=== PATIENT | female | born 1960 | race African-American/Black ===

== ENCOUNTER 2017-10-09 15:23 | Emergency (ER) | payer OTHER ==
[~2017-10-09] VITALS: Ht 170.2 cm; Wt 146.8 kg
[2017-10-09] MEDS ORDERED: LOSA50TA37 PO (15:35)
[2017-10-09] MEDS ORDERED: FURO40 PO (15:35)
[2017-10-09] MEDS ORDERED: ATEN100T PO (15:35)
[2017-10-09] MEDS ORDERED: LEVE500T53 PO (15:35)
[2017-10-09] MEDS ORDERED: LAMO100 PO (15:35)
[2017-10-09] MEDS ORDERED: ESCI10TA PO (15:35)
[2017-10-09] MEDS ORDERED: NIFE10 PO (15:35)
[2017-10-09 16:14] LABS: BASOPHILS % (AUTO) 0.3 % (0.0-2.0); EOSINOPHILS % (AUTO) 0 % (1.0-6.0); HEMATOCRIT 35.5 % (36-46); HEMOGLOBIN 11.9 g/dL (12.0-16.0); LYMPHOCYTES # (AUTO) 1.7 K/uL (1.0-4.8); LYMPHOCYTES % (AUTO) 33.6 % (22.0-44.0); MEAN CORPUSCULAR HEMOGLOBIN 30.9 pg (26.0-34.0); MEAN CORPUSCULAR HGB CONC 33.5 G/dL (31.0-37.0); MEAN CORPUSCULAR VOLUME 92 fL (80-100); MONOCYTES # (AUTO) 0.4 K/uL (0.1-1.0); MONOCYTES % (AUTO) 7.4 % (2.0-9.0); NEUTROPHILS % (AUTO) 58.7 % (40.0-70.0); PLATELET COUNT (AUTO) 229 K/uL (150-450); RED BLOOD CELL COUNT(AUTO) 3.84 MIL/uL (4.00-5.20); RED CELL DISTRIBUTION WIDTH 13.7 % (11.5-14.5)
[2017-10-09 16:19] LABS: APPEARANCE,URINE CLEAR (CLEAR); BILIRUBIN,URINE NEGATIVE (NEGATIVE); GLUCOSE, URINE (UA) NEGATIVE (NEGATIVE); KETONES,URINE NEGATIVE (NEGATIVE); LEUKOCYTE ESTERASE ,URINE NEGATIVE (NEGATIVE); NITRATE,URINE NEGATIVE (NEGATIVE); OCCULT BLOOD,URINE NEGATIVE (NEGATIVE); PH,URINE 5.5 (5.0-8.0); PROTEIN,URINE SEE CONFIRM (NEGATIVE); UROBILINOGEN,URINE 0.2 mg/dL (<=1.0)
[2017-10-09 16:39] LABS: SULFOSALICYLIC ACID,URINE 3+ (Negative)
[2017-10-09 16:41] LABS: BACTERIA,URINE Rare /HPF (None Seen); RBC,URINE None Seen /HPF (0-2); SQUAMOUS EPITHELIAL CELL,UR Moderate /LPF (None Seen); WBC,URINE 0-2 /HPF (0-5)
[2017-10-09 17:44] LABS: CREATININE 2.49 mg/dL (0.60-1.30); POTASSIUM 4.9 mmol/L (3.5-5.1)
[2017-10-09 17:50] LABS: ALBUMIN 3.5 g/dL (3.4-5.0); BILIRUBIN,TOTAL 0.3 mg/dL (0.1-1.0); TOTAL PROTEIN, SERUM 7.8 g/dL (6.4-8.2)
[2017-10-09] MEDS ORDERED: IBUPROFEN 400 MG TABLET PO ONE (18:45)
[2017-10-09] MEDS ORDERED: LIDOCAINE HCL 5% TRANSDERMAL PATCH TD ONE (18:45)
[2017-10-09 19:27] VITALS: BP 189/99
== END 2017-10-09 19:39 | disposition home or self-care (01) ==
LOC: EMS 15:23
DX: I12.9 Hypertensive chronic kidney disease with stage 1 through stage 4 chronic kidney disease, or unspecified chronic kidney disease (principal); N18.9 Chronic kidney disease, unspecified; R80.9 Proteinuria, unspecified; Z88.0 Allergy status to penicillin
CPT/HCPCS: 74176; 99285